=== PATIENT | female | born 1975 | race Caucasian/White ===

== ENCOUNTER 2017-02-05 14:17 | Emergency (ER) | payer BC, OTHER ==
[~2017-02-05] VITALS: Ht 160 cm; Wt 70.5 kg
[~2017-02-05 14:17] MED LIST: CEFD1CAP8 PO
[2017-02-05 15:45] LABS: BASO % 0.4 % (0.0-1.0); EOS % 0.4 % (0.0-3.0); IMMATURE GRANULOCYTE % 0.4 % (0-0); LYMPH # 2.1 10^3/uL (1.5-4.5); LYMPH % 19.6 % (24.0-44.0); MEAN CORPUSCULAR HEMOGLOBIN 32.4 pg (27.0-33.0); MEAN CORPUSCULAR HGB CONC 33.6 g/dl (32.0-36.5); MEAN CORPUSCULAR VOLUME 96.3 fl (80.0-96.0); MONO # 0.6 10^3/uL (0.0-0.8); NEUTROPHILS # 8.1 10^3/uL (1.8-7.7); NEUTROPHILS % 74.2 % (36.0-66.0); PLATELET COUNT, AUTOMATED 316 10^3/uL (150-450); RED CELL DISTRIBUTION WIDTH 12.8 % (11.5-14.5); WHITE BLOOD COUNT 10.9 10^3/uL (4.0-10.0)
[2017-02-05 15:55] LABS: INR 0.98
[2017-02-05 16:01] LABS: CONTROL LINE HCG INT CTR LINE PRESENT
[2017-02-05 16:08] LABS: ANION GAP 8 MEQ/L (8-16); BLOOD UREA NITROGEN 9 MG/DL (7-18); CALCIUM LEVEL 9.5 MG/DL (8.5-10.1); CARBON DIOXIDE LEVEL 24 MEQ/L (21-32); CHLORIDE LEVEL 110 MEQ/L (98-107); CREATININE FOR GFR 0.79 MG/DL (0.55-1.02); GLOMERULAR FILTRATION RATE > 60.0 (>58); GLUCOSE, FASTING 118 MG/DL (70-105); SODIUM LEVEL 142 MEQ/L (136-145)
[2017-02-05] MEDS ORDERED: PROHANCE 279.3MG/ML 15ML VIAL (A9576) As Ordered ONE (18:42)
[2017-02-05 19:23] VITALS: BP 156/89
--- NOTE | 2017-02-05 19:30 | REPUSA ---
MRI of the brain. Clinical history: facial numbness and drooping. Technique: Multiecho multiplanar MRI images of the brain were obtained before and after administratio n of intravenous gadolinium contrast of contrast. Diffusion weighted images with ADC mapping was also obtained. Findings: The ventricles and sulci are symmetric bilaterally. The brain parenchyma demonstrates uniform and nor mal signal on all sequences. There is no midline shift, mass effect, or extra-axial fluid collection. The midline intracranial structures do not demonstrate any gross abnormalities. The cervical cranial junction is intact. The orbits are unremarkable. The visualized paranasal sinuses and mastoid air ce lls are clear. The osseous structures and superficial soft tissues are unremarkable. The vascular str uctures demonstrate appropriate flow voids. The vascular structures enhancing appropriately. There ar e no abnormal areas of enhancement. Impression: Normal MRI of the Brain.
[2017-02-05] MEDS ORDERED: ACYC200C8 PO (20:09)
[2017-02-05] MEDS ORDERED: PRED20TA PO (20:10)
[2017-02-05] MEDS ORDERED: ERYTOIN8 OD (20:18)
--- NOTE | 2017-02-06 11:29 | REP ---
Portable chest x-ray: Single view. History: CVA. No comparison study. Findings: The lungs are well inflated and free of infiltrate. Pleural angles are sharp. Cardiomediastinal silhouette is unremarkable. Pulmonary vasculature is not increased. Impression: No acute disease. Signed by Agustín Cazares MD 02/06/2017 09:35 A
--- NOTE | 2017-02-07 07:52 | ECGEPIP ---
Stationary ECG Study [facility] - ED Test Date: 2017-02-05 Pat Name: CHERYL RUIZ Department: Room: - Gender: F [employer]: simeon : 1975 Requested By: SHIELA Price Order Number: [id number] Reading MD: Emmie Giron Measurements Intervals [place] Rate: 80 P: 51 NC: 143 QRS: 6 QRSD: 86 T: 18 QT: 372 QTc: 429 Interpretive Statements SINUS RHYTHM MINIMAL ST DEPRESSION NO PRIOR FOR COMPARISON Electronically Signed On 02-07-2017 7:52:08 EDT by Emmie Giron
--- NOTE | 2017-02-07 08:06 | REP ---
Head CT without contrast: History: CVA . Comparison study: No comparison study CT findings: Bone window settings demonstrate an intact bony calvarium. There is no evidence of skull fracture or incidental bony calvarial lesion. The visualized paranasal sinuses appear clear. No intraorbital abnormality is seen. On soft tissue window setting images; the lateral, third, and fourth ventricles are normal in size and position. Hein-white differentiation pattern is normal above and below the tentorium. There are is no evidence of intracranial hemorrhage. No mass, edema, infarction, or midline shift is seen. No extra-axial fluid collection is appreciated. Impression: Negative noncontrast head CT. Signed by Agustín Cazares MD 02/05/2017 03:19 P
[2017-02-09 08:06] LABS: Lyme Disease IgG/IgM Antibodie <0.91 ISR (0.00-0.90); Lyme Disease IgM Ab Quantitati <0.80 index (0.00-0.79)
== END 2017-02-05 20:33 | disposition home or self-care (01) ==
LOC: M ED 14:17
DX: G51.0 Bell's palsy (principal); R20.9 Unspecified disturbances of skin sensation; F17.200 Nicotine dependence, unspecified, uncomplicated; Z91.012 Allergy to eggs
CPT/HCPCS: 70450; 70553; 71010; 80048; 82550; 82553; 84703; 85025; 85610; 85730; 86617; 93005; 93041; 99285; A9576

== ENCOUNTER → 2017-03-02 | Outpatient (REF) | payer OTHER ==
[~2017-03-02] MED LIST changes: +ACYC200C8 PO; +ERYTOIN8 OD; +PRED20TA PO
[2017-03-02 13:55] LABS: FOLATE 23.9 NG/ML; VITAMIN B12 LEVEL 1008 PG/ML
[2017-03-02 13:56] LABS: FREE T4 1.03 NG/DL (0.76-1.46); TOTAL PROTEIN 7.5 GM/DL (6.4-8.2)
[2017-03-03 12:47] LABS: ALBUMIN 4.52 GM/DL (3.29-5.55); ALBUMIN % 60.2 % (55.8-66.1); GAMMA GLOBULIN % 11.6 % (11.1-18.8)
[2017-03-06 00:06] LABS: SJOGREN'S ANTI SS-A <0.2 AI (0.0-0.9); SJOGREN'S ANTI SS-B 3.2 AI (0.0-0.9); VITAMIN E LEVEL 13.4 mg/L (5.3-16.8)
== END ==
LOC: M LABNEURO 09:31
PROVIDERS: ATTEND Psychiatry & Neurology Neurology
DX: G51.0 Bell's palsy (principal); G60.9 Hereditary and idiopathic neuropathy, unspecified

== ENCOUNTER 2021-01-16 09:48 | Emergency (ER) | payer OTHER ==
--- NOTE | 2021-01-16 10:22 | REP ---
INDICATION: CVA - Nursing interventions must not delay CT. COMPARISON: Comparison head CT study is from February 05, 2017. TECHNIQUE: Helical scanning is acquired. 5 mm axial images were reformatted. Coronal MPR images were generated. FINDINGS: Bone window settings demonstrate an intact bony calvarium. There is no evidence of skull fracture or incidental bony calvarial lesion. The visualized paranasal sinuses appear clear. No intraorbital abnormality is seen. On soft tissue window setting images; the lateral, third, and fourth ventricles are normal in size and position. Hein-white differentiation pattern is normal above and below the tentorium. There are is no evidence of intracranial hemorrhage. No mass, edema, infarction, or midline shift is seen. No extra-axial fluid collection is appreciated. IMPRESSION: Negative noncontrast head CT. <Electronically signed by Delbert Cazares > 01/16/21 [id number]
[2021-01-16 10:42] LABS: BASO % 0.5 % (0.0-1.0); EOS # 0.2 10^3/uL (0.0-0.5); HEMATOCRIT 41.4 % (36.0-47.0); HEMOGLOBIN 13.9 g/dl (12.0-15.5); LYMPH # 2.5 10^3/uL (1.5-5.0); LYMPH % 29.3 % (24.0-44.0); MEAN CORPUSCULAR HEMOGLOBIN 32.5 pg (27.0-33.0); MEAN CORPUSCULAR HGB CONC 33.6 g/dl (32.0-36.5); MEAN CORPUSCULAR VOLUME 96.7 fl (80.0-96.0); MONO # 0.7 10^3/uL (0.0-0.8); NEUTROPHILS # 5.2 10^3/uL (1.5-8.5); NEUTROPHILS % 59.7 % (36.0-66.0); PLATELET COUNT, AUTOMATED 211 10^3/uL (150-450); RED BLOOD COUNT 4.28 10^6/uL (4.00-5.40); WHITE BLOOD COUNT 8.7 10^3/uL (4.0-10.0)
[2021-01-16 10:59] LABS: INR 1.03; PROTHROMBIN TIME 13.9 SECONDS (12.7-14.5)
[2021-01-16 11:00] LABS: PARTIAL THROMBOPLASTIN TIME 26.6 SECONDS (25.9-37.0)
[2021-01-16 11:21] LABS: ALBUMIN 3.5 GM/DL (3.2-5.2); ALT/SGPT 18 U/L (12-78); BILIRUBIN,DIRECT 0.1 MG/DL (0.0-0.2); BILIRUBIN,TOTAL 0.4 MG/DL (0.2-1.0); BLOOD UREA NITROGEN 12 MG/DL (7-18); CARBON DIOXIDE LEVEL 25 MEQ/L (21-32); CHLORIDE LEVEL 112 MEQ/L (98-107); CK-MB VALUE MASS < 1.0 NG/ML (<3.6); CPK CREATINE PHOSPHOKINASE 57 U/L (26-192); CREATININE FOR GFR 0.86 MG/DL (0.55-1.30); FREE T4 1.03 NG/DL (0.76-1.46); GLOMERULAR FILTRATION RATE > 60.0 (>58); GLUCOSE, FASTING 88 MG/DL (70-100); MB/CK RELATIVE INDEX 1.75 (< OR =4); POTASSIUM SERUM 4.5 MEQ/L (3.5-5.1); SODIUM LEVEL 144 MEQ/L (136-145); THYROID STIMULATING HORMONE 0.407 uIU/ML (0.358-3.740); TOTAL PROTEIN 6.4 GM/DL (6.4-8.2); TROPONIN I < 0.02 NG/ML (< 0.10)
--- NOTE | 2021-01-16 11:45 | REP ---
INDICATION: CVA. COMPARISON: February 05, 2017. TECHNIQUE: Portable upright AP chest radiograph. FINDINGS: The lungs are well inflated and free of infiltrate. Pleural angles are sharp. Heart size is normal. Pulmonary vasculature is not increased. IMPRESSION: No active disease. <Electronically signed by Delbert Cazares > 01/16/21 [id number]
--- NOTE | 2021-01-16 14:16 | REP ---
INDICATION: CVA. COMPARISON: Comparison is made with CT study of the brain done earlier this date.. TECHNIQUE: Axial and sagittal imaging planes are utilized for T1 and T2-weighted scans. Sequences include spin-echo, fast spin echo, FLAIR, and diffusion weighted sequences. FINDINGS: No bony calvarial lesion is seen. Craniocervical junction and upper cervical cord are normal in appearance. There is no MR evidence of significant paranasal sinus disease. No intraorbital abnormality is seen. The lateral, third, and fourth ventricles are normal in size and position. Hein-white differentiation pattern is intact above and below the tentorium. There is no evidence of intracranial hemorrhage. No mass, infarction, extra-axial fluid collection or midline shift is seen. No abnormal white matter lesion is seen. IMPRESSION: Negative noncontrast brain MRI study. <Electronically signed by Delbert Cazares > 01/16/21 [id number]
--- NOTE | 2021-01-16 14:18 | REP ---
INDICATION: CVA. COMPARISON: None. TECHNIQUE: 3-D [id number] MR angiography of the brain is acquired in the usual fashion and maximal intensity projection images were generated in rotational format about the vertical and horizontal axes. In addition, source axial T1-weighted images are viewed in cine mode. FINDINGS: The distal vertebral arteries are patent and co-dominant. Basilar artery is a little tortuous but widely patent. The posterior cerebral and superior cerebellar vessels are normal and symmetric. The distal internal carotid arteries are unremarkable. Anterior and middle cerebral arteries appear intact. There is no visible jordan aneurysm or arteriovenous malformation. IMPRESSION: Unremarkable MR angiography the brain. <Electronically signed by Delbert Cazares > 01/16/21 [id number]
[2021-01-16] MEDS ORDERED: predniSONE 20 MG TAB PO ONE (15:10)
[2021-01-16] MEDS ORDERED: valACYclovir HCL 500 MG TAB PO ONE (15:10)
[2021-01-16] MEDS ORDERED: PRED20TA PO (15:22)
[2021-01-16] MEDS ORDERED: VALA1TAB5 PO (15:22)
[2021-01-16 15:29] VITALS: BP 120/57
--- NOTE | 2021-01-16 19:21 | ECGEPIP ---
[facility] - ED Test Date: 2021-01-16 Pat Name: CHERYL RUIZ Department: Room: - Gender: Female Kennel Keeper: KATHY : 1975 Requested By: NOE Tanner Order Number: [id number] Reading MD: Dandre Camarena Measurements Intervals [place] Rate: 82 P: 75 [place]: 146 QRS: 24 QRSD: 84 T: 54 QT: 372 QTc: 434 Interpretive Statements Normal sinus rhythm Possible Left atrial enlargement POOR R WAVE PROGRESSION SIMILAR TO 02/05/17 Electronically Signed on 01-16-2021 19:21:16 EDT by Dandre Camarena
[2021-01-19 16:08] LABS: Lyme Disease IgG/IgM Antibodie <0.91 ISR (0.00-0.90); Lyme Disease IgM Ab Quantitati <0.80 index (0.00-0.79)
== END 2021-01-16 15:32 | disposition home or self-care (01) ==
LOC: M ED 09:48
DX: G51.0 Bell's palsy (principal); Z87.891 Personal history of nicotine dependence; Z91.012 Allergy to eggs
CPT/HCPCS: 70450; 70544; 70551; 71045; 80048; 80076; 82550; 82553; 84439; 84443; 84484; 85025; 85610; 85730; 86617; 93005; 93041; 94760; 99285; J7512

== ENCOUNTER → 2021-01-30 | Outpatient (REF) ==
[~2021-01-30] MED LIST changes: +VALA1TAB5 PO
== END ==
LOC: M LABSMTC 09:27
PROVIDERS: ATTEND Pediatrics
DX: Z11.52 Encounter for screening for COVID-19 (principal)

== ENCOUNTER 2021-03-23 06:40 | Outpatient (RCR) | END 2021-03-23 15:00 | disposition home or self-care (01) | LOC: M EMP 06:40 | PROVIDERS: ATTEND Pediatrics | DX: Z11.52 Encounter for screening for COVID-19 (principal) ==

== ENCOUNTER → 2021-03-27 | Outpatient (REF) | LOC: M LABSMTC 11:18 | PROVIDERS: ATTEND Pediatrics | DX: Z20.828 Contact with and (suspected) exposure to other viral communicable diseases (principal) ==

== ENCOUNTER → 2021-03-30 | Outpatient (REF) | LOC: M LABSMTC 11:08 | PROVIDERS: ATTEND Pediatrics | DX: Z20.822 Contact with and (suspected) exposure to COVID-19 (principal) ==

== ENCOUNTER → 2021-04-03 | Outpatient (REF) ==
[~2021-04-03] MED LIST changes: -CEFD1CAP8 PO; +CEFD300C41 PO
== END ==
LOC: M LABSMTC 10:14
PROVIDERS: ATTEND Family Medicine
DX: Z20.828 Contact with and (suspected) exposure to other viral communicable diseases (principal)

== ENCOUNTER → 2021-05-02 | Outpatient (REF) ==
[2021-05-02 16:08] LABS: RSV AMPLIFICATION NEGATIVE (NEGATIVE)
== END ==
LOC: M LABSMTC 10:25
PROVIDERS: ATTEND Family Medicine
DX: Z20.822 Contact with and (suspected) exposure to COVID-19 (principal)

== ENCOUNTER → 2021-06-01 | Outpatient (REF) | LOC: M LABSMTC 09:24 | PROVIDERS: ATTEND Family Medicine | DX: Z20.828 Contact with and (suspected) exposure to other viral communicable diseases (principal) ==

== ENCOUNTER 2021-06-16 08:25 | Outpatient (RCR) | END 2021-06-22 08:00 | disposition home or self-care (01) | LOC: M EMP 08:25 | PROVIDERS: ATTEND Pediatrics | DX: Z20.822 Contact with and (suspected) exposure to COVID-19 (principal) ==

== ENCOUNTER → 2021-12-31 | Outpatient (REF) | LOC: M LABSMTC 09:00 | PROVIDERS: ATTEND Family Medicine | DX: Z20.822 Contact with and (suspected) exposure to COVID-19 (principal) ==

== ENCOUNTER 2022-06-04 11:31 | Emergency (ER) | payer OTHER ==
[~2022-06-04] VITALS: Ht 162.6 cm; Wt 65.9 kg
[2022-06-04 11:43] VITALS: BP 137/78
[2022-06-04] MEDS ORDERED: GI COCKTAIL 50ML BTL(HYOSCYAMINE/MAALOX/LIDOCAINE VISCOUS)(1:3:1) PO ONE (12:15)
[2022-06-04] MEDS ORDERED: NS 1,000 ML IV SCH (12:15)
[2022-06-04 12:25] LABS: BASO % 0.7 % (0.0-1.0); EOS # 0.1 10^3/uL (0.0-0.5); HEMOGLOBIN 13.3 g/dl (12.0-15.5); LYMPH % 35.4 % (24.0-44.0); MEAN CORPUSCULAR HEMOGLOBIN 31.1 pg (27.0-33.0); MEAN CORPUSCULAR HGB CONC 33.3 g/dl (32.0-36.5); MEAN CORPUSCULAR VOLUME 93.7 fl (80.0-96.0); MONO # 0.5 10^3/uL (0.0-0.8); MONO % 8.9 % (2.0-8.0); NEUTROPHILS # 3.1 10^3/uL (1.5-8.5); NEUTROPHILS % 53.7 % (36.0-66.0); PLATELET COUNT, AUTOMATED 238 10^3/uL (150-450); RED BLOOD COUNT 4.27 10^6/uL (4.00-5.40); WHITE BLOOD COUNT 5.7 10^3/uL (4.0-10.0)
[2022-06-04 12:44] LABS: INR 1.01; LIPASE 52 U/L (12-53); PROTHROMBIN TIME 13.5 SECONDS (12.5-14.5)
[2022-06-04 12:45] LABS: PARTIAL THROMBOPLASTIN TIME 26.7 SECONDS (24.8-34.2)
[2022-06-04 12:50] LABS: ALBUMIN 3.7 G/DL (3.2-5.2); ALKALINE PHOSPHATASE 63 U/L (46-116); ALT/SGPT 15 U/L (7.0-40); AST/SGOT 27 U/L (<34); BILIRUBIN,DIRECT < 0.1 MG/DL (<0.4); BILIRUBIN,TOTAL 0.5 MG/DL (0.3-1.2); BLOOD UREA NITROGEN 18 MG/DL (9-23); CARBON DIOXIDE LEVEL 25 MMOL/L (20-31); CHLORIDE LEVEL 104 MMOL/L (98-107); CK-MB VALUE MASS < 1.0 NG/ML (<3.6); CREATININE FOR GFR 0.92 MG/DL (0.55-1.30); GLOMERULAR FILTRATION RATE > 60.0 (>58); GLUCOSE, FASTING 96 MG/DL (60-100); MAGNESIUM LEVEL 1.9 MG/DL (1.8-2.4); POTASSIUM SERUM 4.5 MMOL/L (3.5-5.1); SODIUM LEVEL 139 MMOL/L (136-145); THYROID STIMULATING HORMONE 0.508 uIU/ML (0.55-4.78); TOTAL PROTEIN 6.3 G/DL (5.7-8.2)
[2022-06-04 12:51] LABS: FREE T4 1.05 NG/DL (0.89-1.76)
[2022-06-04 12:52] LABS: CPK CREATINE PHOSPHOKINASE 79 U/L (34-145); MB/CK RELATIVE INDEX 1.26 (< OR =4)
[2022-06-04] MEDS ORDERED: ISOVUE-370 76% 100ML VIAL As Ordered ONE (12:53)
[2022-06-04 14:07] LABS: CK-MB VALUE MASS < 1.0 NG/ML (<3.6)
[2022-06-04 14:09] LABS: CPK CREATINE PHOSPHOKINASE 58 U/L (34-145); MB/CK RELATIVE INDEX 1.72 (< OR =4)
== END 2022-06-04 14:45 | disposition home or self-care (01) ==
LOC: M ED 11:31
DX: R07.9 Chest pain, unspecified (principal); I49.3 Ventricular premature depolarization; F17.200 Nicotine dependence, unspecified, uncomplicated; Z91.012 Allergy to eggs; Z79.52 Long term (current) use of systemic steroids; Z79.899 Other long term (current) drug therapy

== ENCOUNTER 2022-06-23 16:55 | Emergency (ER) | payer OTHER ==
[~2022-06-23] VITALS: Ht 162.6 cm; Wt 66.4 kg
[2022-06-23] MEDS ORDERED: ECOT81TA5 PO (17:42)
[2022-06-23 17:49] LABS: BASO % 0.6 % (0.0-1.0); EOS % 0.4 % (0.0-3.0); HEMATOCRIT 44.3 % (36.0-47.0); HEMOGLOBIN 14.6 g/dl (12.0-15.5); LYMPH # 2.2 10^3/uL (1.5-5.0); LYMPH % 32.8 % (24.0-44.0); MEAN CORPUSCULAR HEMOGLOBIN 30.9 pg (27.0-33.0); MEAN CORPUSCULAR VOLUME 93.9 fl (80.0-96.0); MONO # 0.5 10^3/uL (0.0-0.8); MONO % 7.4 % (2.0-8.0); NEUTROPHILS % 58.5 % (36.0-66.0); PLATELET COUNT, AUTOMATED 242 10^3/uL (150-450); RED BLOOD COUNT 4.72 10^6/uL (4.00-5.40); WHITE BLOOD COUNT 6.8 10^3/uL (4.0-10.0)
[2022-06-23 18:01] LABS: INR 0.94; PARTIAL THROMBOPLASTIN TIME 26.1 SECONDS (24.8-34.2); PROTHROMBIN TIME 12.8 SECONDS (12.5-14.5)
[2022-06-23 18:08] LABS: CK-MB VALUE MASS < 1.0 NG/ML (<3.6)
[2022-06-23 18:09] LABS: LIPASE 38 U/L (12-53)
[2022-06-23 18:10] LABS: CPK CREATINE PHOSPHOKINASE 88 U/L (34-145); MB/CK RELATIVE INDEX 1.13 (< OR =4)
[2022-06-23 18:11] LABS: ALBUMIN 4.5 G/DL (3.2-5.2); ALKALINE PHOSPHATASE 68 U/L (46-116); ALT/SGPT 22 U/L (7.0-40); AST/SGOT 21 U/L (<34); BILIRUBIN,DIRECT 0.2 MG/DL (<0.4); BILIRUBIN,TOTAL 0.5 MG/DL (0.3-1.2); BLOOD UREA NITROGEN 12 MG/DL (9-23); CALCIUM LEVEL 9.8 MG/DL (8.5-10.1); CARBON DIOXIDE LEVEL 27 MMOL/L (20-31); CHLORIDE LEVEL 104 MMOL/L (98-107); GLOMERULAR FILTRATION RATE > 60.0 (>58); GLUCOSE, FASTING 99 MG/DL (60-100); POTASSIUM SERUM 3.8 MMOL/L (3.5-5.1); SODIUM LEVEL 143 MMOL/L (136-145); TOTAL PROTEIN 7.4 G/DL (5.7-8.2)
[2022-06-23 18:12] LABS: FREE T4 1.07 NG/DL (0.89-1.76); THYROID STIMULATING HORMONE 0.875 uIU/ML (0.55-4.78)
[2022-06-23] MEDS ORDERED: MAG SULF 1GM/100ML (MAG RUN) 1 GM in IV 1 EA IV ONE (18:40)
[2022-06-23 19:08] LABS: CK-MB VALUE MASS < 1.0 NG/ML (<3.6)
[2022-06-23 19:09] LABS: CPK CREATINE PHOSPHOKINASE 84 U/L (34-145); MB/CK RELATIVE INDEX 1.19 (< OR =4)
[2022-06-23 19:20] LABS: RSV AMPLIFICATION NEGATIVE (NEGATIVE)
[2022-06-23 20:30] VITALS: BP 134/86
== END 2022-06-23 20:54 | disposition home or self-care (01) ==
LOC: M ED 16:55
DX: R07.9 Chest pain, unspecified (principal); Z91.040 Latex allergy status; Z79.82 Long term (current) use of aspirin
CPT/HCPCS: 71045; 80047; 80048; 80076; 82550; 82553; 83690; 83735; 84439; 84443; 84484; 85025; 85610; 85730; 87631; 93005; 96374; 99284; J3475

== ENCOUNTER 2023-02-01 15:15 | Emergency (ER) | payer OTHER ==
[~2023-02-01] VITALS: Ht 160 cm; Wt 70.6 kg
[~2023-02-01 15:15] MED LIST changes: -CEFD300C41 PO; +CEFD300C42 PO; +ECOT81TA5 PO
[2023-02-01] MEDS ORDERED: VALT500T PO (15:45)
[2023-02-01 16:10] LABS: BASO % 0.4 % (0.0-1.0); EOS # 0.1 10^3/uL (0.0-0.5); EOS % 1.1 % (0.0-3.0); HEMATOCRIT 47.6 % (36.0-47.0); HEMOGLOBIN 15.8 g/dl (12.0-15.5); LYMPH # 2.7 10^3/uL (1.5-5.0); LYMPH % 33.1 % (24.0-44.0); MEAN CORPUSCULAR HEMOGLOBIN 32.2 pg (27.0-33.0); MEAN CORPUSCULAR HGB CONC 33.2 g/dl (32.0-36.5); MEAN CORPUSCULAR VOLUME 97.1 fl (80.0-96.0); MONO # 0.6 10^3/uL (0.0-0.8); MONO % 6.9 % (2.0-8.0); NEUTROPHILS # 4.8 10^3/uL (1.5-8.5); NEUTROPHILS % 58.3 % (36.0-66.0); PLATELET COUNT, AUTOMATED 289 10^3/uL (150-450); WHITE BLOOD COUNT 8.2 10^3/uL (4.0-10.0)
[2023-02-01] MEDS ORDERED: ISOVUE-370 76% 100ML VIAL As Ordered ONE (16:14)
[2023-02-01 16:22] LABS: INR 0.96; PROTHROMBIN TIME 12.5 SECONDS (12.5-14.5)
[2023-02-01 16:23] LABS: PARTIAL THROMBOPLASTIN TIME 25.9 SECONDS (24.8-34.2)
[2023-02-01 16:37] LABS: CK-MB VALUE MASS < 1.0 NG/ML (<3.6)
[2023-02-01 16:40] LABS: HCG, SERUM QUALITATIVE NEGATIVE (NEGATIVE); LIPASE 53 U/L (12-53)
[2023-02-01 16:41] LABS: THYROID STIMULATING HORMONE 0.976 uIU/ML (0.55-4.78)
[2023-02-01 16:42] LABS: ALBUMIN 4.2 G/DL (3.2-5.2); ALKALINE PHOSPHATASE 83 U/L (46-116); ALT/SGPT 18 U/L (7.0-40); AST/SGOT 15 U/L (<34); BILIRUBIN,DIRECT 0.1 MG/DL (<0.4); BILIRUBIN,TOTAL 0.5 MG/DL (0.3-1.2); FREE T4 1.22 NG/DL (0.89-1.76); TOTAL PROTEIN 7.3 G/DL (5.7-8.2)
[2023-02-01 16:58] LABS: RSV AMPLIFICATION NEGATIVE (NEGATIVE)
[2023-02-01 16:59] LABS: CPK CREATINE PHOSPHOKINASE 61 U/L (34-145); MB/CK RELATIVE INDEX 1.63 (< OR =4)
[2023-02-01 17:53] LABS: CPK CREATINE PHOSPHOKINASE 50 U/L (34-145)
[2023-02-01 17:54] LABS: CK-MB VALUE MASS < 1.0 NG/ML (<3.6)
[2023-02-01 18:41] VITALS: BP 131/76; TEMP 97.6; O2SAT 100
== END 2023-02-01 18:46 | disposition home or self-care (01) ==
LOC: M ED 15:15
DX: R07.9 Chest pain, unspecified (principal); I49.3 Ventricular premature depolarization; D35.02 Benign neoplasm of left adrenal gland; F10.10 Alcohol abuse, uncomplicated; Z91.012 Allergy to eggs; Z79.82 Long term (current) use of aspirin; Z79.899 Other long term (current) drug therapy
CPT/HCPCS: 36415; 71045; 71275; 80047; 80076; 82550; 82553; 83690; 84439; 84443; 84484; 84703; 85025; 85610; 85730; 87631; 93005; 93041; 94760; 99285; Q9967

== ENCOUNTER → 2023-02-08 | Outpatient (CLI) | payer OTHER ==
[~2023-02-08] MED LIST changes: +VALT500T PO
[2023-02-08 08:14] LABS: HEMATOCRIT 40.2 % (36.0-47.0); HEMOGLOBIN 13.8 g/dl (12.0-15.5); MEAN CORPUSCULAR HEMOGLOBIN 32.7 pg (27.0-33.0); MEAN CORPUSCULAR HGB CONC 34.3 g/dl (32.0-36.5); MEAN CORPUSCULAR VOLUME 95.3 fl (80.0-96.0); PLATELET COUNT, AUTOMATED 243 10^3/uL (150-450); RED BLOOD COUNT 4.22 10^6/uL (4.00-5.40); WHITE BLOOD COUNT 6.6 10^3/uL (4.0-10.0)
[2023-02-08 08:45] LABS: ALBUMIN 3.7 G/DL (3.2-5.2); ALKALINE PHOSPHATASE 72 U/L (46-116); ALT/SGPT 15 U/L (7.0-40); AST/SGOT 12 U/L (<34); BILIRUBIN,TOTAL 0.5 MG/DL (0.3-1.2); BLOOD UREA NITROGEN 14 MG/DL (9-23); CALCIUM LEVEL 9.1 MG/DL (8.5-10.1); CARBON DIOXIDE LEVEL 30 MMOL/L (20-31); CHLORIDE LEVEL 107 MMOL/L (98-107); CHOLESTEROL LEVEL 187 MG/DL (<200); CREATININE FOR GFR 0.89 MG/DL (0.55-1.30); ESTRADIOL 21.9 PG/ML; FOLLICLE STIMULATING HORMONE 133.5 mIU/ML; GLOMERULAR FILTRATION RATE > 60.0 (>58); GLUCOSE, FASTING 107 MG/DL (60-100); HDL CHOLESTEROL 98.1 MG/DL (>40); LDL CHOLESTEROL 73.5 MG/DL (<100); NON-HDL-C 88.9 MG/DL; POTASSIUM SERUM 4.4 MMOL/L (3.5-5.1); PROLACTIN 6.79 NG/ML; SODIUM LEVEL 144 MMOL/L (136-145); THYROID STIMULATING HORMONE 0.921 uIU/ML (0.55-4.78); TOTAL PROTEIN 6.5 G/DL (5.7-8.2); TRIGLYCERIDES LEVEL 77 MG/DL (<150)
[2023-02-08 08:46] LABS: TESTOSTERONE 22 NG/DL (14-76)
== END ==
LOC: M LAB 07:34
PROVIDERS: ATTEND Nurse Practitioner Family
DX: E87.5 Hyperkalemia (principal); D35.02 Benign neoplasm of left adrenal gland

== ENCOUNTER → 2023-02-23 | Outpatient (CLI) | payer OTHER | LOC: M PLAIMG 08:47 | PROVIDERS: ATTEND Nurse Practitioner Family | DX: D35.02 Benign neoplasm of left adrenal gland (principal) ==

== ENCOUNTER → 2023-05-19 | Outpatient (CLI) | payer BC, OTHER, SELFPAY ==
[~2023-05-19] MED LIST changes: +CEFD1CAP9 PO; -CEFD300C42 PO
[2023-05-28 09:12] LABS: METANEPHRINE PLASMA 30.2 pg/mL (0.0-88.0); NORMETANEPHRINE PLASMA 85.1 pg/mL (0.0-218.9)
== END ==
LOC: M LAB 07:14
PROVIDERS: ATTEND Nurse Practitioner Family
DX: D35.02 Benign neoplasm of left adrenal gland (principal)

== ENCOUNTER → 2023-07-08 | Outpatient (CLI) | payer BC | LOC: M LAB 07:17 | PROVIDERS: ATTEND Nurse Practitioner Family | DX: D35.02 Benign neoplasm of left adrenal gland (principal) | CPT/HCPCS: 36415; 82533; G0480 ==

== ENCOUNTER → 2024-07-11 | Outpatient (CLI) | payer BC ==
[2024-07-11 16:45] LABS: BLOOD UREA NITROGEN 14 MG/DL (9-23); CALCIUM LEVEL 9.5 MG/DL (8.5-10.1); CARBON DIOXIDE LEVEL 27 MMOL/L (20-31); CHLORIDE LEVEL 107 MMOL/L (98-107); CREATININE FOR GFR 1.02 MG/DL (0.55-1.30); GLOMERULAR FILTRATION RATE > 60.0 (>51); GLUCOSE, FASTING 84 MG/DL (60-100); HCG, SERUM QUALITATIVE NEGATIVE (NEGATIVE); POTASSIUM SERUM 4.2 MMOL/L (3.5-5.1); SODIUM LEVEL 144 MMOL/L (136-145)
== END ==
LOC: M LAB 15:34
PROVIDERS: ATTEND Physician Assistant
DX: Z79.899 Other long term (current) drug therapy (principal)

== ENCOUNTER → 2025-01-22 | Outpatient (CLI) | payer BC ==
[~2025-01-22] MED LIST changes: +ACYC200C10 PO; -ACYC200C8 PO; +ISOVUE-370 76% 100 ML VIAL ONE
== END ==
LOC: M PLAIMG 10:29
PROVIDERS: ATTEND Urology
DX: E27.8 Other specified disorders of adrenal gland (principal)
CPT/HCPCS: 74170; Q9967